=== PATIENT | male | born 1955 | race Caucasian/White ===

== ENCOUNTER 2017-01-11 22:08 | Emergency (ER) | payer MEDICAID | END 2017-01-12 00:25 | disposition home or self-care (01) | LOC: D.ER 22:08 | DX: G40.909 Epilepsy, unspecified, not intractable, without status epilepticus (principal); I10 Essential (primary) hypertension; F32.9 Major depressive disorder, single episode, unspecified; M54.9 Dorsalgia, unspecified ==

== ENCOUNTER 2017-07-21 12:45 | Inpatient (IN) | payer MEDICAID ==
[~2017-07-21] VITALS: Ht 182.9 cm; Wt 61.2 kg
[2017-07-21 15:00] LABS: BASOPHILS 0.1 % (0-2); EOSINOPHILS 0 % (0-7); HEMATOCRIT 41.1 % (42.0-54.0); HEMOGLOBIN 13.9 g/dL (13.5-17.5); IMMATURE GRANULOCYTES 0.5 % (0-5); LYMPHOCYTES 8.4 % (15-50); MCH 34.3 pg (26.0-34.0); MCHC 33.8 g/dL (31.0-37.0); MCV 101.5 fL (80.0-100.0); MEAN PLATELET VOLUME 10.6 fL (7.4-10.4); MONOCYTES 11.3 % (2-11); NEUTROPHILS 79.7 % (40-80); PLATELET COUNT 252 10x3/uL (130-400); RBC 4.05 10x6/uL (4.20-6.10); RDW 16.4 % (11.5-14.5); WBC 14.3 10x3/uL (4.8-10.8)
[2017-07-21 15:07] LABS: ALBUMIN 3.3 g/dL (3.4-5.0); ALKALINE PHOSPHATASE 84 U/L (46-116); ALT (SGPT) 49 U/L (10-68); BILIRUBIN - TOTAL 2.48 mg/dL (0.2-1.3); CALC OSMOLALITY 274 mosm/kg (275-300); CALCIUM 8.7 mg/dL (8.5-10.1); CARBON DIOXIDE 29.8 mmol/L (21.0-32.0); CHLORIDE - SERUM 98 mmol/L (98-107); CREATININE - SERUM 0.7 mg/dL (0.6-1.3); GLUCOSE 88 mg/dL (74-106); PROTEIN - SERUM 7.7 g/dL (6.4-8.2); SODIUM 137 mmol/L (136-145); UREA NITROGEN 19 mg/dL (7-18); eGFR NON AFRICAN AMERICAN > 90 mL/min (90-120)
[2017-07-21 15:09] LABS: POTASSIUM - SERUM 2.8 mmol/L (3.5-5.1)
[2017-07-21 18:29] LABS: APPEARANCE CLEAR (CLEAR); BILIRUBIN NEGATIVE (NEGATIVE); COLOR DK YELLOW (YELLOW); GLUCOSE NEGATIVE (NEGATIVE); KETONE SMALL mg/dL (NEGATIVE); LEUKOCYTE ESTERASE NEGATIVE (NEGATIVE); NITRITE NEGATIVE (NEGATIVE); PROTEIN TRACE mg/dL (NEGATIVE); UROBILINOGEN NORMAL (NORMAL)
[2017-07-21 20:00] VITALS: BP 145/77
[2017-07-22] VITALS (7 sets, daily range): BP systolic 122–147; BP diastolic 54–72; Ht 182.9 cm; Wt 61.2 kg
--- NOTE | 2017-07-22 04:21 | NUR ---
PT CONFUSED. SPEECH IS INAPPROPRIATE WORDS. PULLING AT LINES. HAVE REPLACED BAPTISTE STABILER 2 TIMES AND TAPED IT DOWN THE THIRD TIME HE PULLED IT OFF. TRYING TO CLIMB OUT OF BED. CALLED REPORT TO DR ERWIN AND PUT IN ORDER FOR DECADRON AT BEGINNING OF SHIFT. TARIK ALARM ON. WILL CONTINUE TO MONITOR.
[2017-07-22] MEDS ORDERED: CLONAZEPAM2 MG/TAB PO (06:52)
--- NOTE | 2017-07-22 07:00 | NUR ---
REPORT RECIEVED ASSUMED CARE. PATIENT IN BED WITH IV INTACT. NO COMPLAINTS AT THIS TIME. CONFUSED AT THIS TIME. BED ALARM ON. CALL LIGHT WITHIN REACH.
[2017-07-22 08:00] LABS: APTT 23.8 SECONDS (22.8-39.4); INR 0.97 (0.85-1.17); PROTIME 12.7 SECONDS (11.6-15.0)
--- NOTE | 2017-07-22 08:50 | NUR ---
PATIENT SITTING UP IN BED EATING BREAKFAST. NO COMPLAINTS OR SIGNS OF DISTRESS. CALL LIGHT WITHIN REACH.
--- NOTE | 2017-07-22 12:30 | NUR ---
PATIENT SLEEPING QUIETLY AT THIS TIME. NO COMPLAINTS OR SIGNS OF DISTRESS. CALL LIGHT WITHIN REACH.
--- NOTE | 2017-07-22 18:52 | NUR ---
PATIENT IN BED WITH IV ITNACT. NO COMPLAINTS AT THIS TIME. BED ALARM ON. CALL LIGHT WITHIN REACH.
--- NOTE | 2017-07-22 18:53 | NUR ---
PATIENT IN BED WITH IV INTACT. NO COMPLAINTS AT THIS TIME. CALL LIGHT WITHIN REACH.
[2017-07-23] VITALS: BP 135/82
--- NOTE | 2017-07-23 01:16 | NUR ---
PT CONFUSED. VERBAL RESPONSE IS WORD SALAD MAJORITY OF TIME. NO RESPONSE TO MOST QUESTIONS. PT LYING IN BED SHAKING BEDRAIL. INSTRUCTED HIM TO STOP, THAT IT WAS TEARING UP THE BED. ASKED IF HE HAD ANY NEEDS, TO WHICH HE WOULD RESPOND BY CLOSING HIS EYES AND PRETEND TO SLEEP. SOON I WOULD LEAVE ROOM HE WOULD START SHAKING THE RAIL AGAIN, STOPPING WHEN I CAME IN ROOM AND PRETEND TO BE ASLEEP. THIS HAPPENED SEVERAL TIMES BEFORE HE STOPPED. OFFERED DRINK AND TOILETING, PT REFUSED TO ANSWER. WILL CONTINUE TO MONITOR. TARIK ALARM ON AND WORKING.
[2017-07-23 04:00] VITALS: BP 135/66
[2017-07-23 06:43] LABS: BASOPHILS 0.1 % (0-2); EOSINOPHILS 0.1 % (0-7); HEMOGLOBIN 14.3 g/dL (13.5-17.5); IMMATURE GRANULOCYTES 0.3 % (0-5); LYMPHOCYTES 8.2 % (15-50); MCH 34.3 pg (26.0-34.0); MCV 100.7 fL (80.0-100.0); MEAN PLATELET VOLUME 10.7 fL (7.4-10.4); MONOCYTES 6.5 % (2-11); NEUTROPHILS 84.8 % (40-80); PLATELET COUNT 265 10x3/uL (130-400); RBC 4.17 10x6/uL (4.20-6.10); RDW 15.7 % (11.5-14.5); WBC 11.4 10x3/uL (4.8-10.8)
[2017-07-23 06:55] LABS: CALCIUM 8.8 mg/dL (8.5-10.1); CARBON DIOXIDE 30.4 mmol/L (21.0-32.0); CHLORIDE - SERUM 96 mmol/L (98-107); GLUCOSE 87 mg/dL (74-106); SODIUM 135 mmol/L (136-145)
[2017-07-23 06:56] LABS: CALC OSMOLALITY 267 mosm/kg (275-300); CREATININE - SERUM 0.5 mg/dL (0.6-1.3); POTASSIUM - SERUM 2.8 mmol/L (3.5-5.1); UREA NITROGEN 10 mg/dL (7-18); eGFR NON AFRICAN AMERICAN > 90 mL/min (90-120)
--- NOTE | 2017-07-23 07:00 | NUR ---
REPORT RECIEVED ASSUMED CARE. PATIENT IN BED WITH IV INTACT. BPATISTE INTACT. CALL LIGHT WITHIN REACH. BA ON.
[2017-07-23 08:15] VITALS: BP 122/66
[2017-07-23 13:04] VITALS: BP 122/68
[2017-07-23 15:58] VITALS: BP 120/64
--- NOTE | 2017-07-23 18:55 | NUR ---
PATIENT IN BED WITH IV INTACT. NO COMPLAINTS. EYES OPEN. PATIENT IRRITATED. DOES NOT WANT TO TAKE LAST POTASSIUM FOR PROTOCAL. NOTIFIED NIGHT NURSE. BAPTISTE INTACT. CALL LIGHT WITHIN REACH.
[2017-07-23 19:00] VITALS: BP 121/65
[2017-07-24 04:00] VITALS: BP 126/69
[2017-07-24 05:45] LABS: BASOPHILS 0 % (0-2); EOSINOPHILS 0.1 % (0-7); HEMATOCRIT 42.6 % (42.0-54.0); HEMOGLOBIN 14.4 g/dL (13.5-17.5); IMMATURE GRANULOCYTES 0.3 % (0-5); LYMPHOCYTES 14.3 % (15-50); MCHC 33.8 g/dL (31.0-37.0); MCV 100.5 fL (80.0-100.0); MEAN PLATELET VOLUME 10.9 fL (7.4-10.4); MONOCYTES 10.8 % (2-11); NEUTROPHILS 74.5 % (40-80); RBC 4.24 10x6/uL (4.20-6.10); RDW 15.5 % (11.5-14.5)
[2017-07-24 05:57] LABS: PLATELET COUNT 320 10x3/uL (130-400)
[2017-07-24 06:06] LABS: CALCIUM 8.5 mg/dL (8.5-10.1); CARBON DIOXIDE 29.1 mmol/L (21.0-32.0); CHLORIDE - SERUM 99 mmol/L (98-107); CREATININE - SERUM 0.6 mg/dL (0.6-1.3); GLUCOSE 102 mg/dL (74-106); SODIUM 137 mmol/L (136-145); eGFR NON AFRICAN AMERICAN > 90 mL/min (90-120)
[2017-07-24 06:07] LABS: CALC OSMOLALITY 275 mosm/kg (275-300); POTASSIUM - SERUM 3.1 mmol/L (3.5-5.1); UREA NITROGEN 18 mg/dL (7-18)
--- NOTE | 2017-07-24 06:55 | NUR ---
REPORT RECIEVED, ASSUMED CARE OF PT. NO SIGNS OF ACUTE DISTRESS, PT VOICE SLURRED AND GARBLED. UNABLE TO VOICE NEEDS. BED IN LOWEST POSITION, SIDE RAILS UP X 2, CALL LIGHT WITHIN REACH.
[2017-07-24 09:26] VITALS: BP 135/58
--- NOTE | 2017-07-24 12:30 | NUR ---
PT RESTING WITH EYES SHUT, NO SIGNS OF ACUTE DISTRESS. NO CHANGE FROM SHIFT ASSESSMENT. BED IN LOWEST POSITION, SIDE RAILS UP X 2, CALL LIGHT WITHIN REACH.
[2017-07-24 12:47] VITALS: BP 136/70
--- NOTE | 2017-07-24 15:00 | NUR ---
PT RE-POSITIONED. NO SIGNS OF ACUTE DISTRESS. R FOREARM IV SALINE LOCKED, DRSG C/D/I. BAPTISTE PATENT, DRAINING. BED IN LOWEST POSITION, SIDE RAILS UP X 2, CALL LIGHT WITHIN REACH.
--- NOTE | 2017-07-24 15:01 | NUR ---
NUTRITION F/U CHART REVIEWED, PT VISIT. REG DIET WITH POOR PO INTAKE PAST TWO MEALS. WILL CONTINUE TO PROVIDE DIET, MONITOR PO INTAKE. RD FOLLOWING
--- NOTE | 2017-07-24 16:05 | NUR ---
Patient Name: MANUEL BEDOYA Admission Status: ER Accout number: [id number] Admission Date: 07-21-2017 : 1955 Admission Diagnosis: Attending: LISET PIMENTEL Current LOS: 3 Anticipated DC Date: 07-28-2017 Planned Disposition: Nursing Facility [facility] Primary Insurance: [place] PRIVATE OPTIONS [facility] Discharge Planning Comments: CM CALLED PATIENTS DAUGHTER (NORM) REGARDING D/C NEEDS AND PLANS. DAUGHTER STATED HER DAD LIVES WITH HER AND HAS BEEN FALLING ALOT AND MUMBLING. PATIENT WAS FOUND IN FRONT YARD EATING A TWIG PER DAUGHTER. DAUGHTER STATED HE FALLS ALL THE TIME AND SHE CANNOT KEEP UP WITH HIM AT HOME. HE HAS A WALKER BUT DOES NOT USE IT ALL THE TIME PER DAUGHTER. PATIENTS PCP IS DR. PIMENTEL AND PHARMACY IS [facility] ON [address]. THERE ARE NO STEPS OR STAIRS AT PATIENTS HOME. DAUGHTER STATED SHE AND HER SISTER WILL TALK ABOUT A FACILITY. DAUGHTER WANTS TO WAIT AND SEE IF DOCTOR FINDS ANYTHING NEW REGARDING PATIENT. CM WILL CONTINUE TO FOLLOW PATIENT WITH D/C NEEDS AND PLANS. PCP DR. [facility] [address]- [phone] NORM (DAUGHTER) [phone] [employer] Marketing Analyst: Annamariavicente Diasmel Is the patient Alert and Oriented? No 0 * How many steps to enter\exit or inside your home? 0 0 * PCP DR PIMENTEL 0 * Pharmacy [facility] [address] 0 * Preadmission Environment Home with Family 0 * ADLs Independent 0 * Equipment Shower Chair Walker 0 * List name and contact numbers for known caregivers / representatives who currently or will assist patient after discharge: NORM BEDOYA (DAUGHTER) [phone] 0 * Community resources currently utilized None 0 * Additional services required to return to the preadmission environment? Yes 0 * Can the patient safely return to the preadmission environment? No 0 * Has this patient been hospitalized within the prior 30 days at any hospital? No 0 Grand Total: 0
[2017-07-24 16:55] VITALS: BP 135/64
[2017-07-24 19:00] VITALS: BP 132/62
--- NOTE | 2017-07-24 19:25 | NUR ---
PT LYING IN BED, VERY FIDGETY WITH HANDS AND LOOKS AROUND ROOM, PT DID MAKE EYE CONTACT AND HOLD CONTACT WHILE SPOKEN TO. NO OTHER NEEDS AT THIS TIME
--- NOTE | 2017-07-24 19:43 | NUR ---
PT RESTING IN BED, EYES OPEN. NO CHANGE FROM SHIFT ASSESSMENT. BAPTISTE PATENT, DRAINING. R FOREARM IV SALINE LOCKED, DRSG C/D/I. BED IN LOWEST POSITION, SIDE RAILS UP X 2, CALL LIGHT WITHIN REACH.
[2017-07-25] VITALS: BP 107/62
[2017-07-25 04:00] VITALS: BP 144/72
[2017-07-25 06:09] LABS: BASOPHILS 0 % (0-2); EOSINOPHILS 0.1 % (0-7); HEMOGLOBIN 14.1 g/dL (13.5-17.5); IMMATURE GRANULOCYTES 0.3 % (0-5); LYMPHOCYTES 21.7 % (15-50); MCH 33.7 pg (26.0-34.0); MCHC 33.6 g/dL (31.0-37.0); MCV 100.5 fL (80.0-100.0); MONOCYTES 10.3 % (2-11); NEUTROPHILS 67.6 % (40-80); PLATELET COUNT 341 10x3/uL (130-400); RBC 4.18 10x6/uL (4.20-6.10); RDW 15.3 % (11.5-14.5); WBC 9.8 10x3/uL (4.8-10.8)
[2017-07-25 06:31] LABS: ALBUMIN 3.1 g/dL (3.4-5.0); ALKALINE PHOSPHATASE 73 U/L (46-116); ALT (SGPT) 62 U/L (10-68); CALC OSMOLALITY 280 mosm/kg (275-300); CALCIUM 9.1 mg/dL (8.5-10.1); CARBON DIOXIDE 27.1 mmol/L (21.0-32.0); CHLORIDE - SERUM 102 mmol/L (98-107); CREATININE - SERUM 0.5 mg/dL (0.6-1.3); GLUCOSE 84 mg/dL (74-106); POTASSIUM - SERUM 3.1 mmol/L (3.5-5.1); PROTEIN - SERUM 6.9 g/dL (6.4-8.2); SODIUM 139 mmol/L (136-145); eGFR NON AFRICAN AMERICAN > 90 mL/min (90-120)
[2017-07-25 06:33] LABS: UREA NITROGEN 23 mg/dL (7-18)
--- NOTE | 2017-07-25 07:30 | NUR ---
REPORT RECIEVED, ASSUMED CARE OF PT. PT RESTING, EASILY AROUSED. BED ALARM ON. R FOREARM IV SALINE LOCKED, DRSG IN PLACE C/D/I. BAPTISTE CATHETER IN PLACE, PATENT, DRAINING. BED IN LOWEST POSITION, SIDE RAILS UP X 2, CALL LIGHT WITHIN REACH.
[2017-07-25 09:13] VITALS: BP 107/66
[2017-07-25 10:46] VITALS: BP 105/58
--- NOTE | 2017-07-25 13:00 | NUR ---
PT IV LEAKING WHEN FLUSHED, C/O PAIN. IV D/C'D, CATHETER INTACT, BANDAGE APPLIED. RE-SITED TO L FOREARM, PT TOLERATED WITH MINIMAL DISCOMFORT, DRSG APPLIED, PATENT, SALINE LOCKED.
--- NOTE | 2017-07-25 15:18 | NUR ---
CM REASSESSMENT NOTE: REFERRALS HAVE BEEN SENT TO [facility]. CM CALLED DAUGHTER (NORM) 2:30 PM BUT NO ANSWER AND NO RETURN CALL. CM WILL CONTINUE TO TRY AND REACH DAUGHTER. DAUGHTER PREVIOUSLY STATED SHE WANTED ONE CLOSE TO THEM (RAMÓN).
[2017-07-25 16:37] VITALS: BP 109/61
--- NOTE | 2017-07-25 17:56 | NUR ---
CALLED DIP TANKER FOR SCD MACHINE.
[2017-07-25 20:00] VITALS: BP 124/66
--- NOTE | 2017-07-25 20:00 | NUR ---
NO CHANGE FROM SHIFT ASSESSMENT. NO SIGNS OF ACUTE DISTRESS. BED IN LOWEST POSITION, SIDE RAILS UP X 3, CALL LIGHT WITHIN REACH.
--- NOTE | 2017-07-25 23:09 | NUR ---
PT RESTING IN BED, NO COMPLAINTS AT THIS TIME. NO SIGNS OF ACUTE DISTRESS. BED IN LOWEST POSITION, SIDE RAILS UP X 2, CALL LIGHT WITHIN REACH.
[2017-07-26] VITALS: BP 118/66
--- NOTE | 2017-07-26 01:00 | NUR ---
PT AWAKE MOVING RESTLESSLY IN CONFUSED MANNER. BED IN LOW POSITION FOR SAFETY. BED ALARM ON. NO OBVIOUS DISTRESS
--- NOTE | 2017-07-26 03:00 | NUR ---
PT LYING TO RIGHT SIDE SLEEPING. WAS GIVEN A COMPLETE BED BATH PER AIDE AND TOLERATED WELL. HAS BEEN SLEEPING WELL SINCE THEN. WHILE AWAKE SPEECH GARBLED AND WORD SALAD OBSERVED. NO OBVIOUS DISTRESS NOTED
[2017-07-26 04:00] VITALS: BP 105/72
--- NOTE | 2017-07-26 05:00 | NUR ---
PT EASILY AWAKEN. ANGRY WITH WORD SALAD. UNSURE TO WHAT PT'S ANGER IS DIRECTED. PT UNABLE TO MAKE NEEDS KNOWN. ALL NEEDS PROVIDED BY STAFF
[2017-07-26 06:01] LABS: BASOPHILS 0 % (0-2); EOSINOPHILS 0.7 % (0-7); HEMATOCRIT 46.8 % (42.0-54.0); HEMOGLOBIN 15.2 g/dL (13.5-17.5); IMMATURE GRANULOCYTES 0.4 % (0-5); LYMPHOCYTES 16.5 % (15-50); MCH 33.7 pg (26.0-34.0); MCHC 32.5 g/dL (31.0-37.0); MEAN PLATELET VOLUME 11.1 fL (7.4-10.4); NEUTROPHILS 74.4 % (40-80); PLATELET COUNT 321 10x3/uL (130-400); RBC 4.51 10x6/uL (4.20-6.10); RDW 15.4 % (11.5-14.5); WBC 11.3 10x3/uL (4.8-10.8)
[2017-07-26 06:04] LABS: MCV 103.8 fL (80.0-100.0)
[2017-07-26 06:27] LABS: ALBUMIN 3.3 g/dL (3.4-5.0); ALKALINE PHOSPHATASE 83 U/L (46-116); ALT (SGPT) 64 U/L (10-68); BILIRUBIN - TOTAL 1.03 mg/dL (0.2-1.3); CALC OSMOLALITY 283 mosm/kg (275-300); CALCIUM 8.9 mg/dL (8.5-10.1); CARBON DIOXIDE 29.3 mmol/L (21.0-32.0); CHLORIDE - SERUM 102 mmol/L (98-107); CREATININE - SERUM 0.5 mg/dL (0.6-1.3); GLUCOSE 78 mg/dL (74-106); PROTEIN - SERUM 7.1 g/dL (6.4-8.2); SODIUM 141 mmol/L (136-145); UREA NITROGEN 24 mg/dL (7-18); eGFR NON AFRICAN AMERICAN > 90 mL/min (90-120)
[2017-07-26 08:09] VITALS: BP 111/55
--- NOTE | 2017-07-26 11:30 | NUR ---
Rehab Note- Acute Rehab Prescreen order received. The patient has [employer] [place] Private Options and cannot be admitted to [facility] Acute rehab. Thank you for this referral! Ellen Wills RN Clinical Liaison, [facility] Re[facility]
[2017-07-26 12:27] VITALS: BP 122/75
--- NOTE | 2017-07-26 13:12 | NUR ---
CM REASSESSMENT NOTE: PATIENT HAS BEEN DECLINED BY [facility]. [facility] RE[facility]ERR[facility] ARE STILL OUT.
--- NOTE | 2017-07-26 14:41 | NUR ---
CM REASSESSMENT NOTE: [facility] DENIED PATIENT. REFERRALS TO [facility], [facility], [facility], AND [facility] ARE STILL OUT.
[2017-07-26 16:24] VITALS: BP 132/69
[2017-07-26 20:00] VITALS: BP 127/74
--- NOTE | 2017-07-26 21:00 | NUR ---
AWAKE,ALERT. DOES NOT RESPOND VERBALLY WHEN SPOKEN TO. SL TO LEFT FOREARM WITHOUT REDNESS OR EDEMA. CL IN REACH. BED ALARM ON.
[2017-07-27] VITALS: BP 126/79
--- NOTE | 2017-07-27 02:00 | NUR ---
PT IN BED WITH NO DISTRESS. RESPIRATIONS ARE EVEN AND UNLABORED. SIDE RAILS X 2. BED IS LOW. CALL LIGHT IS IN REACH.
[2017-07-27 04:00] VITALS: BP 136/69
[2017-07-27 05:39] LABS: BASOPHILS 0.1 % (0-2); EOSINOPHILS 0.2 % (0-7); HEMATOCRIT 45.7 % (42.0-54.0); HEMOGLOBIN 15.2 g/dL (13.5-17.5); IMMATURE GRANULOCYTES 0.4 % (0-5); LYMPHOCYTES 15.4 % (15-50); MCH 33.6 pg (26.0-34.0); MCHC 33.3 g/dL (31.0-37.0); MEAN PLATELET VOLUME 11.1 fL (7.4-10.4); MONOCYTES 8.2 % (2-11); NEUTROPHILS 75.7 % (40-80); PLATELET COUNT 333 10x3/uL (130-400); RBC 4.52 10x6/uL (4.20-6.10); RDW 14.9 % (11.5-14.5); WBC 13.3 10x3/uL (4.8-10.8)
[2017-07-27 05:44] LABS: MCV 101.1 fL (80.0-100.0)
--- NOTE | 2017-07-27 05:47 | NUR ---
LYING QUIETLY. NO DISTRESS NOTED. CL IN REACH.
[2017-07-27 05:59] LABS: ALBUMIN 3.4 g/dL (3.4-5.0); ALKALINE PHOSPHATASE 81 U/L (46-116); ALT (SGPT) 53 U/L (10-68); CALC OSMOLALITY 280 mosm/kg (275-300); CALCIUM 9.2 mg/dL (8.5-10.1); CARBON DIOXIDE 29.8 mmol/L (21.0-32.0); CHLORIDE - SERUM 104 mmol/L (98-107); CREATININE - SERUM 0.5 mg/dL (0.6-1.3); GLUCOSE 104 mg/dL (74-106); POTASSIUM - SERUM 3.9 mmol/L (3.5-5.1); PROTEIN - SERUM 7.1 g/dL (6.4-8.2); SODIUM 139 mmol/L (136-145); UREA NITROGEN 22 mg/dL (7-18); eGFR NON AFRICAN AMERICAN > 90 mL/min (90-120)
--- NOTE | 2017-07-27 08:00 | NUR ---
PT AOX1 RESP EVEN AND NONLABORED WORDS GARBLED. IV TO LEFT FOREARM PATENT AND INTACT AT THIS TIME SRX2 BED AT LOWEST SETTING CALL LIGHT WITHIN REACH WILL CONTINUE TO MONITOR
[2017-07-27 08:02] VITALS: BP 134/69
[2017-07-27 12:21] VITALS: BP 115/71
--- NOTE | 2017-07-27 13:40 | NUR ---
CM REASSESSMENT NOTE: CM SENT REFERRAL TO [facility]. DAUGHTER CB AGREED TO THIS REFERRAL.
--- NOTE | 2017-07-27 15:06 | NUR ---
NUTRITION F/U CHART REVIEWED. PT WITH 100% INTAKE RECENT MEALS. WILL CONTINUE TO PROVIDE DIET, MONITOR PO INTAKE. RD FOLLOWING
[2017-07-27 16:01] VITALS: BP 124/56
--- NOTE | 2017-07-27 19:00 | NUR ---
REPORT RECEIVED AND CARE OF PT ASSUMED. PT LYING IN SUPINE POSITION WITH EYES CLOSED. IV IN LEFT FA SALINE LOCKED. BED ALARM IN USE. WILL MONITOR CLOSELY FOR NEEDS.
[2017-07-27 20:00] VITALS: BP 125/80
--- NOTE | 2017-07-27 20:48 | NUR ---
HS MEDICATIONS GIVEN. FSBS 81 THIS CHECK REQUIRING NO COVERAGE PER SLIDING SCALE. WILL CONTINUE TO MONITOR FOR NEEDS.
--- NOTE | 2017-07-27 21:00 | NUR ---
GAVE JUICE HS SNACK.
[2017-07-28] VITALS: BP 106/66
--- NOTE | 2017-07-28 01:00 | NUR ---
PT BATHED AND ALL LINEN AND GOWN CHANGED.
--- NOTE | 2017-07-28 01:15 | NUR ---
PT HAS X2 SMALL STAGE 2 PRESSURE ULCERS IN COCCYX AREA. APPLIED ANABELLA'S OINTMENT AND COVERED WITH MEPILEX HEART. INSTRUCTED MANAGER ACUTE TO KEEP PT TURNED EVERY 2 HOURS, HOWEVER PT SCOOTS OFF OF PILLOWS WHEN ATTEMPTING TO PROP ONTO ONE SIDE.
[2017-07-28 04:00] VITALS: BP 115/58
[2017-07-28 06:21] LABS: BASOPHILS 0.2 % (0-2); EOSINOPHILS 0.1 % (0-7); HEMATOCRIT 47.6 % (42.0-54.0); HEMOGLOBIN 15.4 g/dL (13.5-17.5); IMMATURE GRANULOCYTES 0.4 % (0-5); LYMPHOCYTES 17.8 % (15-50); MCH 34.2 pg (26.0-34.0); MCHC 32.4 g/dL (31.0-37.0); MEAN PLATELET VOLUME 11.1 fL (7.4-10.4); MONOCYTES 7.9 % (2-11); NEUTROPHILS 73.6 % (40-80); PLATELET COUNT 323 10x3/uL (130-400); RDW 15.5 % (11.5-14.5); WBC 10.4 10x3/uL (4.8-10.8)
[2017-07-28 06:29] LABS: MCV 105.8 fL (80.0-100.0)
--- NOTE | 2017-07-28 07:00 | NUR ---
REPORT RECIEVED ASSUMED CARE. PATIENT IN BED WITH IV INTACT. NO COMPLAINTS OR SIGNS OF DISTRESS. BAPTISTE INTACT. BA ON. CALL LIGHT WITHIN REACH.
[2017-07-28 07:57] LABS: ALBUMIN 3.5 g/dL (3.4-5.0); ALKALINE PHOSPHATASE 84 U/L (46-116); ALT (SGPT) 53 U/L (10-68); CALC OSMOLALITY 282 mosm/kg (275-300); CALCIUM 9.2 mg/dL (8.5-10.1); CHLORIDE - SERUM 105 mmol/L (98-107); CREATININE - SERUM 0.7 mg/dL (0.6-1.3); GLUCOSE 97 mg/dL (74-106); POTASSIUM - SERUM 3.8 mmol/L (3.5-5.1); PROTEIN - SERUM 7.2 g/dL (6.4-8.2); SODIUM 140 mmol/L (136-145); UREA NITROGEN 24 mg/dL (7-18); eGFR NON AFRICAN AMERICAN > 90 mL/min (90-120)
[2017-07-28 07:58] VITALS: BP 109/57
--- NOTE | 2017-07-28 08:30 | NUR ---
ASSESSMENT COMPLETE, VS STABLE. NO COMPLAINTS OR SIGNS OF DISTRESS AT THIS TIME. IV AND BAPTISTE INTACT. PATIENT SEEMS TO BE ABLE TO PUT TOGETHER SENTENCES BETTER THAN LAST WEEK. BED ALARM ON. CALL LIGHT WITHIN REACH.
[2017-07-28 15:27] VITALS: BP 116/69
--- NOTE | 2017-07-28 18:55 | NUR ---
PATIENT IN BED WITH IV INTACT. NO COMPLAINTS AT THIS TIME. EYES CLOSED RESTING QUIETLY. CALL LIGHT WITHIN REACH. BA ON.
[2017-07-28 20:00] VITALS: BP 114/77
[2017-07-29] VITALS: BP 119/64
[2017-07-29 04:00] VITALS: BP 111/62
[2017-07-29 06:29] LABS: BASOPHILS 0 % (0-2); EOSINOPHILS 0.2 % (0-7); HEMATOCRIT 42.9 % (42.0-54.0); HEMOGLOBIN 14.4 g/dL (13.5-17.5); IMMATURE GRANULOCYTES 0.5 % (0-5); MCH 33.3 pg (26.0-34.0); MCHC 33.6 g/dL (31.0-37.0); MEAN PLATELET VOLUME 11.3 fL (7.4-10.4); MONOCYTES 8.1 % (2-11); NEUTROPHILS 74.2 % (40-80); PLATELET COUNT 287 10x3/uL (130-400); RBC 4.32 10x6/uL (4.20-6.10); RDW 14.6 % (11.5-14.5); WBC 10.7 10x3/uL (4.8-10.8)
[2017-07-29 06:31] LABS: MCV 99.3 fL (80.0-100.0)
[2017-07-29 07:05] VITALS: BP 133/70
[2017-07-29 07:28] LABS: ALBUMIN 3.1 g/dL (3.4-5.0); ALKALINE PHOSPHATASE 80 U/L (46-116); ALT (SGPT) 46 U/L (10-68); BILIRUBIN - TOTAL 0.76 mg/dL (0.2-1.3); CALCIUM 8.7 mg/dL (8.5-10.1); CHLORIDE - SERUM 103 mmol/L (98-107); GLUCOSE 97 mg/dL (74-106); POTASSIUM - SERUM 4.1 mmol/L (3.5-5.1); PROTEIN - SERUM 6.4 g/dL (6.4-8.2); SODIUM 136 mmol/L (136-145)
[2017-07-29 07:29] LABS: CALC OSMOLALITY 273 mosm/kg (275-300); CREATININE - SERUM 0.5 mg/dL (0.6-1.3); UREA NITROGEN 17 mg/dL (7-18); eGFR NON AFRICAN AMERICAN > 90 mL/min (90-120)
--- NOTE | 2017-07-29 07:45 | NUR ---
PT ASSESSMENT COMPLETE PT WITH NOTED WORD SALAD UNABLE TO HOLD ANY CONVERSATION OR ANSWER ANY QUESTIONS. PT WITH NOTED BAPTISTE CATHETER PATENT TO DARK YELLOW URINE PER GRAVITY FLOW. ALL ADLS PER STAFF TOTAL CARE.
--- NOTE | 2017-07-29 11:03 | NUR ---
IN RESTROOM AT THIS TIME. PT IS SELF AMBULATORY AND DENIES NEEDS. WILL CONTINUE WITH PLAN OF CARE.
[2017-07-29 11:12] VITALS: BP 135/88
--- NOTE | 2017-07-29 11:12 | NUR ---
AWAKE AND ALERT AT THIS TIME. SRX3 WITH TARIK MAT ALARM IN USE. CALL LIGHT IN REACH, WILL CONTINUE WITH PLAN OF CARE.
--- NOTE | 2017-07-29 13:00 | NUR ---
PT RESTING IN BED AT THIS TIME BED BATH GIVEN PER STAFF. NO DISTRESS NOTED BED ALARM IN PLACE AND FUNCTIONAL. WILL MONITOR. SIDE RAILS UP X 2 CALL LIGHT IN REACH.
[2017-07-29 13:07] VITALS: BP 118/62
--- NOTE | 2017-07-29 15:56 | NUR ---
PT HAVING OUTBURST OF ANGER AND YELLING OUT UNABLE TO DETERMINE PT NEED DENIES PAIN AND HAS BEEN REPOSITIONED BAPTISTE PATENT AND DRAINING.
[2017-07-29 20:03] VITALS: BP 118/62
--- NOTE | 2017-07-29 20:08 | NUR ---
PT FIGITING AND PULLING ON BAPTISTE TUBING. CALLED DR ERWIN TO INQUIRE ABOUT MEDICATION TO CALM PT. NO ANSWER TO CELL...AWAITING CALL BACK.
--- NOTE | 2017-07-29 20:25 | NUR ---
HS MEDICATIONS GIVEN. TUCKED BLANKETS AROUND PT TO TRY TO PREVENT HIM FROM PULLING ON BAPTISTE TUBING. WILL CONTINUE TO MONITOR FOR NEEDS....ROUNDING ON PT EVERY 5-10 MINUTES.
--- NOTE | 2017-07-29 20:36 | NUR ---
FSBS 99 THIS CHECK. GAVE HS SNACK OF VANILLA WAFERS AND ICED TEA.
--- NOTE | 2017-07-29 21:09 | NUR ---
PT VERY AGGITATED WHEN ASKED QUESTIONS. STILL TRYING TO PULL ON BAPTISTE TUBING...ROUNDING ON PT EVERY 5 MINUTES WITH COUNSELING DIRECTOR ASSISTANCE.
--- NOTE | 2017-07-29 22:32 | NUR ---
PT RESTING QUIETLY WITH EYES CLOSED AT THIS TIME. WILL CONTINUE FREQUENT ROUNDS FOR SAFETY.
[2017-07-30 04:06] VITALS: BP 98/73
--- NOTE | 2017-07-30 07:50 | NUR ---
ASSESSMENT PER FLOW SHEET.PT WITHOUT DISTRESS. DENIES NEEDS.FALL PREVENTION IN PLACE WITH BED ALARM ON AND FUNCTIONING.DOOR OPEN
[2017-07-30 10:00] VITALS: BP 103/65
--- NOTE | 2017-07-30 10:30 | NUR ---
PT INCONTINENT TO STOOLS,VERY LARGE BM BROWN IN COLOR.
--- NOTE | 2017-07-30 11:30 | NUR ---
FSBS 115
[2017-07-30 12:20] VITALS: BP 93/65
--- NOTE | 2017-07-30 14:25 | NUR ---
MORE CONFUSED THIS AFTERNOON. WANTS TO LEAVE AND SMOKE. PT THINKS HE IS DICHARGING HOME.DOOR OPEN TO MONITOR
[2017-07-30 14:27] LABS: BASOPHILS 0.1 % (0-2); EOSINOPHILS 0.1 % (0-7); HEMATOCRIT 46.5 % (42.0-54.0); HEMOGLOBIN 15.7 g/dL (13.5-17.5); IMMATURE GRANULOCYTES 0.2 % (0-5); MCH 34.1 pg (26.0-34.0); MCHC 33.8 g/dL (31.0-37.0); MCV 101.1 fL (80.0-100.0); MEAN PLATELET VOLUME 10.9 fL (7.4-10.4); MONOCYTES 7.4 % (2-11); NEUTROPHILS 83.2 % (40-80); RDW 14.6 % (11.5-14.5)
[2017-07-30 14:29] LABS: PLATELET COUNT 387 10x3/uL (130-400); WBC 14.4 10x3/uL (4.8-10.8)
[2017-07-30 14:44] LABS: ALBUMIN 3.3 g/dL (3.4-5.0); ALKALINE PHOSPHATASE 94 U/L (46-116); ALT (SGPT) 48 U/L (10-68); BILIRUBIN - TOTAL 0.73 mg/dL (0.2-1.3); CALC OSMOLALITY 273 mosm/kg (275-300); CALCIUM 9.1 mg/dL (8.5-10.1); CHLORIDE - SERUM 99 mmol/L (98-107); GLUCOSE 95 mg/dL (74-106); POTASSIUM - SERUM 3.7 mmol/L (3.5-5.1); PROTEIN - SERUM 7.3 g/dL (6.4-8.2); SODIUM 136 mmol/L (136-145); UREA NITROGEN 18 mg/dL (7-18)
[2017-07-30 14:45] LABS: CREATININE - SERUM 0.8 mg/dL (0.6-1.3); eGFR NON AFRICAN AMERICAN > 90 mL/min (90-120)
[2017-07-30 16:06] VITALS: BP 145/81
--- NOTE | 2017-07-30 18:38 | NUR ---
SLEEPING WITHOUT DISTRESS.WITHOUT CHANGE FROM INITIAL SHIFT ASSESSMENT.CONT PLAN OF CARE
--- NOTE | 2017-07-30 19:00 | NUR ---
REPORT RECEIVED AND CARE OF PT ASSUMED. PT LYING IN SEMI YEE'S POSITION FINISHING HIS DINNER AT THIS TIME. IV IN LEFT FA SALINE LOCKED. WILL MONITOR CLOSELY FOR NEEDS. BED ALARM IN USE.
--- NOTE | 2017-07-30 20:37 | NUR ---
HS MEDICATIONS GIVEN TO INCLUDE NORCO PO PER REQUEST FOR PAIN. WILL CONTINUE TO MONITOR CLOSELY FOR NEEDS.
--- NOTE | 2017-07-30 20:40 | NUR ---
HS SNACK GIVEN. FSBS THIS CHECK 108 REQUIRING NO COVERAGE PER SLIDING SCALE.
[2017-07-30 20:43] VITALS: BP 119/76
[2017-07-31] VITALS: BP 130/77
[2017-07-31 04:00] VITALS: BP 122/76
[2017-07-31 05:19] LABS: BASOPHILS 0 % (0-2); EOSINOPHILS 0.4 % (0-7); HEMATOCRIT 45.3 % (42.0-54.0); HEMOGLOBIN 15.6 g/dL (13.5-17.5); IMMATURE GRANULOCYTES 0.4 % (0-5); LYMPHOCYTES 16.8 % (15-50); MCH 34.1 pg (26.0-34.0); MCHC 34.4 g/dL (31.0-37.0); MCV 99.1 fL (80.0-100.0); MEAN PLATELET VOLUME 10.8 fL (7.4-10.4); MONOCYTES 8.5 % (2-11); NEUTROPHILS 73.9 % (40-80); PLATELET COUNT 365 10x3/uL (130-400); RBC 4.57 10x6/uL (4.20-6.10); RDW 14.5 % (11.5-14.5); WBC 14.2 10x3/uL (4.8-10.8)
[2017-07-31 05:35] LABS: ALBUMIN 3.3 g/dL (3.4-5.0); ALKALINE PHOSPHATASE 87 U/L (46-116); ALT (SGPT) 47 U/L (10-68); CALC OSMOLALITY 273 mosm/kg (275-300); CALCIUM 9.1 mg/dL (8.5-10.1); CARBON DIOXIDE 29.5 mmol/L (21.0-32.0); CHLORIDE - SERUM 101 mmol/L (98-107); CREATININE - SERUM 0.6 mg/dL (0.6-1.3); GLUCOSE 104 mg/dL (74-106); POTASSIUM - SERUM 3.2 mmol/L (3.5-5.1); PROTEIN - SERUM 6.9 g/dL (6.4-8.2); SODIUM 136 mmol/L (136-145); UREA NITROGEN 18 mg/dL (7-18); eGFR NON AFRICAN AMERICAN > 90 mL/min (90-120)
--- NOTE | 2017-07-31 05:54 | NUR ---
POTASSIUM LEVEL 3.2 THIS AM. GAVE 40 MEQ LIQUID POTASSIUM MIXED WITH ORANGEJUICE, PER ELECTROLYTE PROTOCOL. WILL RE-CHECK LEVEL IN 4 HOURS.
--- NOTE | 2017-07-31 07:40 | NUR ---
ASSESSMENT PER FLOW SHEET.AWAKENS INT AND IS CONFUSED.FALL PREVENTION IN PLACE WITH TARIK MAT.DOOR OPEN TO MONITOR FOR CHANGE.
[2017-07-31 08:31] VITALS: BP 118/65
--- NOTE | 2017-07-31 08:38 | NUR ---
CM REASSESSMENT NOTE: JEANNA CALLED [facility] FOR UPDATE. LEFT MESSAGE FOR SANGEETA TO CALL [facility].
[2017-07-31 12:33] VITALS: BP 135/70
--- NOTE | 2017-07-31 14:16 | NUR ---
MEDS ORDERED FOR PAIN.
--- NOTE | 2017-07-31 14:28 | NUR ---
BAPTISTE DCD WITH 400 CC OF CONCENTRATED URINE IN BAG.
[2017-07-31 16:38] VITALS: BP 114/76
--- NOTE | 2017-07-31 17:15 | NUR ---
FSBS 118. PT STILL CONFUSED,BUT WITHOUT CHANGE FROM INITIAL SHIFT ASSESSMENT.CONT PLAN OF CARE.
--- NOTE | 2017-07-31 19:30 | NUR ---
RECIEVED SHIFT REPORT. PT IS LYING IN BED. PT IS CONFUSED TO TIME AND SITUATION AT THIS TIME. IV IS PATENT AND SALINE LOC AT THIS TIME. PT DENIES ANY PAIN AT THIS TIME. NO NEEDS ARE VERBALIZED AT THIS TIME. WILL CONTINUE TO MONITOR. SIDE RAILS ARE UP X 2. BED IS IN LOWEST POSITION. BED ALARM ON FOR SAFETY. CALL LIGHT IS WITHIN REACH.
--- NOTE | 2017-07-31 20:54 | NUR ---
SHIFT ASSESSMENT COMPLETED. NIGHT MEDS GIVEN WITH NO PROBLEMS. PT RECIEVED NO INSULIN PER SLIDING SCALE FOR FSBS=98. NO NEEDS ARE VOICED. WILL MONITOR. SIDE RAILS X 2. BED LOW. BED ALARM ON. CALL LIGHT IN REACH.
[2017-08-01] VITALS: BP 145/91
[2017-08-01 04:00] VITALS: BP 155/89
--- NOTE | 2017-08-01 05:30 | NUR ---
IN AND OUT CATH PERFORMED AT THIS TIME WITH NO DIFFICULTY. RECIEVED 650 ML CONCENTRATED URINE. PT TOLERATED WELL. SIDE RAILS X 2. BED LOW. BED ALARM ON. CALL LIGHT IN REACH.
[2017-08-01 07:07] LABS: BASOPHILS 0.1 % (0-2); EOSINOPHILS 0.1 % (0-7); HEMOGLOBIN 15.4 g/dL (13.5-17.5); IMMATURE GRANULOCYTES 0.4 % (0-5); LYMPHOCYTES 7.5 % (15-50); MCH 33.8 pg (26.0-34.0); MCHC 34.2 g/dL (31.0-37.0); MCV 98.9 fL (80.0-100.0); MEAN PLATELET VOLUME 11.6 fL (7.4-10.4); MONOCYTES 6.4 % (2-11); NEUTROPHILS 85.5 % (40-80); PLATELET COUNT 383 10x3/uL (130-400); RBC 4.55 10x6/uL (4.20-6.10); RDW 14.5 % (11.5-14.5); WBC 14.6 10x3/uL (4.8-10.8)
[2017-08-01 07:19] LABS: ALBUMIN 3.4 g/dL (3.4-5.0); ALKALINE PHOSPHATASE 88 U/L (46-116); ALT (SGPT) 51 U/L (10-68); CALC OSMOLALITY 267 mosm/kg (275-300); CALCIUM 9.2 mg/dL (8.5-10.1); CARBON DIOXIDE 23.9 mmol/L (21.0-32.0); CHLORIDE - SERUM 100 mmol/L (98-107); CREATININE - SERUM 0.5 mg/dL (0.6-1.3); GLUCOSE 102 mg/dL (74-106); PROTEIN - SERUM 6.8 g/dL (6.4-8.2); SODIUM 133 mmol/L (136-145); UREA NITROGEN 18 mg/dL (7-18); eGFR NON AFRICAN AMERICAN > 90 mL/min (90-120)
[2017-08-01 08:26] VITALS: BP 127/82
--- NOTE | 2017-08-01 08:50 | NUR ---
PATIENT IN BED WITH IV INTACT. SITTING UP READY TO EAT BREAKFAST. NO COMPLAINTS AT THIS TIME. IV INTACT. CALL LIGHT WITHIN REACH.
[2017-08-01 12:56] VITALS: BP 130/80
[2017-08-01 16:27] VITALS: BP 130/60; BP 138/86
[2017-08-01 20:00] VITALS: BP 115/69
--- NOTE | 2017-08-01 20:02 | NUR ---
PATIENT RESTING WITH EYES CLOSED AND NO VISIBLE SIGNS OF DISTRESS. BED IN LOWEST POSITION, CALL LIGHT WITHIN REACH, AND BED ALARM ON.
[2017-08-02] VITALS: BP 110/70
--- NOTE | 2017-08-02 01:21 | NUR ---
ERNIE SNOW AND Mark ASSISTED THE PATIENT TO THE BSC. PATIENT WAS ABLE TO URINATE A VERY SMALL AMOUNT
[2017-08-02 04:00] VITALS: BP 138/88
--- NOTE | 2017-08-02 04:04 | NUR ---
BLADDER SCAN REVEALED 421 ML
--- NOTE | 2017-08-02 04:38 | NUR ---
JENNIFER RAMIREZ IN REGARDS TO BLADDER SCAN RESULTS
--- NOTE | 2017-08-02 05:39 | NUR ---
IN AND OUT CATH: 450 ML
[2017-08-02 05:57] LABS: BASOPHILS 0.1 % (0-2); EOSINOPHILS 0.3 % (0-7); HEMATOCRIT 45.4 % (42.0-54.0); HEMOGLOBIN 15.6 g/dL (13.5-17.5); IMMATURE GRANULOCYTES 0.3 % (0-5); LYMPHOCYTES 14.2 % (15-50); MCH 33.8 pg (26.0-34.0); MCHC 34.4 g/dL (31.0-37.0); MCV 98.5 fL (80.0-100.0); MEAN PLATELET VOLUME 10.8 fL (7.4-10.4); MONOCYTES 12.2 % (2-11); NEUTROPHILS 72.9 % (40-80); PLATELET COUNT 346 10x3/uL (130-400); RBC 4.61 10x6/uL (4.20-6.10); RDW 14.6 % (11.5-14.5); WBC 11.3 10x3/uL (4.8-10.8)
--- NOTE | 2017-08-02 07:00 | NUR ---
REPORT RECIEVED ASSUMED CARE. PATIENT IN BED WITH IV INTACT. NO COMPLAINTS. BED CHANGED BY NURSE. NO PROBLEMS AT THIS TIME. CALL LIGHT WITHIN REACH.
[2017-08-02 07:18] LABS: ALBUMIN 3.3 g/dL (3.4-5.0); ALKALINE PHOSPHATASE 85 U/L (46-116); ALT (SGPT) 57 U/L (10-68); CALCIUM 9.1 mg/dL (8.5-10.1); CARBON DIOXIDE 24.4 mmol/L (21.0-32.0); CHLORIDE - SERUM 99 mmol/L (98-107); CREATININE - SERUM 0.6 mg/dL (0.6-1.3); GLUCOSE 105 mg/dL (74-106); POTASSIUM - SERUM 3.7 mmol/L (3.5-5.1); PROTEIN - SERUM 6.9 g/dL (6.4-8.2); SODIUM 133 mmol/L (136-145); eGFR NON AFRICAN AMERICAN > 90 mL/min (90-120)
[2017-08-02 07:24] LABS: CALC OSMOLALITY 269 mosm/kg (275-300); UREA NITROGEN 25 mg/dL (7-18)
[2017-08-02 08:02] VITALS: BP 124/82
[2017-08-02 12:19] VITALS: BP 146/88
--- NOTE | 2017-08-02 12:40 | NUR ---
PATIENT IN BED EYES CLOSED RESTING QUIETLY. REFUSED LUNCH. CALL LIGHTW ELDER VALENZUELA.
[2017-08-02 15:46] VITALS: BP 138/71
--- NOTE | 2017-08-02 16:06 | NUR ---
RD ntoe f/u visited pt and chart reviewed Pt appears to be thin and have malnutrition. 07/31 pt noted to have Stage II on coccyx. Intake has declined to 25-50%. Pt seemed to be confused today when I visited him. last bm noted 07/31. Placement is being worked on. REC: Appetite Stimulant. WIll order to give ensure or boost TID with meals. RD to follow.
--- NOTE | 2017-08-02 16:50 | NUR ---
SPOKE WITH DR. JACKSON ABOUT URINARY RETENTION. NEW ORDERS RECIEVED AND CARRIED OUT.
--- NOTE | 2017-08-02 17:51 | NUR ---
PATIENT IN BED WITH IV INTACT. SITTING UP EATING AT THIS TIME. NO COMPLAINTS OR SIGNS OF DISTRESS. CALL LIGHT WITHIN REACH.
--- NOTE | 2017-08-02 19:49 | NUR ---
I&O CATH'D PATIENT AT THIS TIME. 500 ML OUT. PATIENT TOLERATED WITH SMALL AMOUNT OF PAIN. IV INTACT. CALL LIGHT WITHIN REACH. BA ON.
[2017-08-02 20:00] VITALS: BP 135/78
--- NOTE | 2017-08-02 21:57 | NUR ---
REC'D LYING IN BED. ALERT AND ORIENTED X1. DENIED PAIN AT THIS TIME BUT GROANING AND HOLDING HIS ABDOMEN. WILL CONT TO MONITOR. DENIED FURTHER NEEDS AT THIS TIME. INSTRUCTED TO CALL IF NEEDED ANYTHING, VERBALIZED UNDERSTANDING. BED LOW, LOCKED, CALL LIGHT IN REACH, ALARM ON.
[2017-08-03] VITALS: BP 132/70
--- NOTE | 2017-08-03 02:22 | NUR ---
PATIENT IS RESTING QUIETLY WITH EYES CLOSED. NO SIGNS OF DISTRESS NOTED. BED IN LOWEST POSITION, CALL LIGHT IN REACH. BED RAILS UP X'S 2.
--- NOTE | 2017-08-03 04:23 | NUR ---
BLADDER SCANNED DUE TO NO URINE OUTPUT SINCE 199908/02/17 AND READ ONLY 259ML. REPORTED NO DISCOMFORT WHEN ASKED. BLADDER NON PALPABLE. HAS NO IV FLUIDS RUNNING AND IS NOT DRINKING. WILL CONT TO MONITOR.
[2017-08-03 05:55] LABS: BASOPHILS 0.1 % (0-2); EOSINOPHILS 0.1 % (0-7); IMMATURE GRANULOCYTES 0.1 % (0-5); MCH 34.1 pg (26.0-34.0); MCHC 34.8 g/dL (31.0-37.0); MCV 98.1 fL (80.0-100.0); MEAN PLATELET VOLUME 11.3 fL (7.4-10.4); MONOCYTES 13.8 % (2-11); NEUTROPHILS 72.9 % (40-80); PLATELET COUNT 323 10x3/uL (130-400); RBC 4.69 10x6/uL (4.20-6.10); RDW 14.6 % (11.5-14.5)
[2017-08-03 05:58] LABS: WBC 7.5 10x3/uL (4.8-10.8)
[2017-08-03 06:08] LABS: ALBUMIN 3.3 g/dL (3.4-5.0); ALKALINE PHOSPHATASE 89 U/L (46-116); ALT (SGPT) 62 U/L (10-68); CALC OSMOLALITY 271 mosm/kg (275-300); CALCIUM 9.3 mg/dL (8.5-10.1); CARBON DIOXIDE 25.3 mmol/L (21.0-32.0); CHLORIDE - SERUM 97 mmol/L (98-107); CREATININE - SERUM 0.5 mg/dL (0.6-1.3); GLUCOSE 109 mg/dL (74-106); SODIUM 132 mmol/L (136-145); UREA NITROGEN 28 mg/dL (7-18); eGFR NON AFRICAN AMERICAN > 90 mL/min (90-120)
[2017-08-03 08:21] VITALS: BP 151/79
--- NOTE | 2017-08-03 08:30 | NUR ---
ASSESSMENT PER FLOW SHEET.PT WITHOUT DISTRESS.FALL PREVENTION IN PLACE.CALL LIGHT IN REACH
--- NOTE | 2017-08-03 08:58 | NUR ---
SPOKE WITH [facility]/PT VIA PHONE. PATIENT IS STABLE TO TRANSFER TO [facility] BY PRIVATE VEHICLE WITH FAMILY
--- NOTE | 2017-08-03 09:09 | NUR ---
CM REASSESSMENT NOTE: PATIENT IS DISCHARGING THIS AM TO [facility]. DAUGHTER (NORM) IS DRIVING HIM. NO OTHER NEEDS EXPRESSED FOR DISCHARGE.
[2017-08-03] MEDS ORDERED: FLOMAX0.4 MG PO (09:13)
[2017-08-03] MEDS ORDERED: MEDROL DOSE PACK4 MG PO (09:14)
[2017-08-03] MEDS ORDERED: HUMULIN R100 U/ML SC (09:14)
--- NOTE | 2017-08-03 10:15 | NUR ---
LEFT UNIT VIA WHEELCHAIR FOR TRANSPORT TO [facility]. FAMILY AT SIDE
== END 2017-08-03 10:15 | DRG 85 ==
LOC: D.ER 12:45 → D.MS 15:45
PROVIDERS: Emergency Medicine; Family Medicine Adult Medicine; Psychiatry & Neurology Neurology; ADMIT Emergency Medicine
PROC: 0T9B70Z Drainage of Bladder with Drainage Device, Via Natural or Artificial Opening (ICD-10-PCS; principal; 2017-07-21)
DX: S06.2X0A Diffuse traumatic brain injury without loss of consciousness, initial encounter (principal); G93.6 Cerebral edema; R41.0 Disorientation, unspecified; F32.9 Major depressive disorder, single episode, unspecified; I10 Essential (primary) hypertension; G40.909 Epilepsy, unspecified, not intractable, without status epilepticus; Z86.73 Personal history of transient ischemic attack (TIA), and cerebral infarction without residual deficits; R29.6 Repeated falls

== ENCOUNTER 2017-08-10 11:06 | Emergency (ER) | payer MEDICAID ==
[2017-07-22 13:42] VITALS: BMI 18.3
[~2017-08-10 11:06] MED LIST: CLONAZEPAM2 MG/TAB PO; FLOMAX0.4 MG PO; HUMULIN R100 U/ML SC; MEDROL DOSE PACK4 MG PO
== END 2017-08-10 16:02 | disposition home or self-care (01) ==
LOC: D.ER 11:06
DX: S39.012A Strain of muscle, fascia and tendon of lower back, initial encounter (principal); W19.XXXA Unspecified fall, initial encounter; Y93.89 Activity, other specified; Y92.029 Unspecified place in mobile home as the place of occurrence of the external cause; I10 Essential (primary) hypertension

== ENCOUNTER 2017-10-26 00:44 | Emergency (ER) | payer MEDICAID ==
[2017-07-22 13:42] VITALS: BMI 18.3
== END 2017-10-26 04:30 | disposition home or self-care (01) ==
LOC: D.ER 00:44
DX: S01.81XA Laceration without foreign body of other part of head, initial encounter (principal); W01.0XXA Fall on same level from slipping, tripping and stumbling without subsequent striking against object, initial encounter; Y93.89 Activity, other specified; Y92.019 Unspecified place in single-family (private) house as the place of occurrence of the external cause; Z86.73 Personal history of transient ischemic attack (TIA), and cerebral infarction without residual deficits; I10 Essential (primary) hypertension

== ENCOUNTER 2019-02-01 18:27 | Emergency (ER) | payer MEDICAID ==
[2019-02-01 18:37] VITALS: Ht 182.9 cm
[2019-02-01 22:11] VITALS: BP 109/63
== END 2019-02-01 22:11 ==
LOC: D.ER 18:27
DX: K94.23 Gastrostomy malfunction (principal)